=== PATIENT | male | born 1995 | race Two or more races ===

== ENCOUNTER 2018-03-02 10:58 | Emergency (ER) | payer SELFPAY ==
[~2018-03-02] VITALS: Ht 172.7 cm; Wt 77.1 kg
[2018-03-02 12:45] VITALS: BP 140/72
== END 2018-03-02 12:51 | disposition home or self-care (01) ==
LOC: ER 10:58
DX: H66.92 Otitis media, unspecified, left ear (principal); H61.22 Impacted cerumen, left ear